=== PATIENT | female | born 1930 | race Two or more races ===

== ENCOUNTER 2017-01-04 13:58 | Emergency (ER) | payer OTHER ==
[~2017-01-04] VITALS: Ht 152.4 cm; Wt 41.4 kg
[2017-01-04 16:15] LABS: BASOPHIL % 0.3 % (0-2); PLATELET COUNT 346 x10^3mcL (130-400)
[2017-01-04 16:18] LABS: RED CELL DISTRIBUTION WIDTH 15.9 % (11.5-14.5)
[2017-01-04 16:19] LABS: CALCIUM 9.1 mg/dL (8.5-10.1); CARBON DIOXIDE 22.4 mmol/L (21-32); CHLORIDE SERUM 105 mmol/L (98-107); CREATININE SERUM 0.6 mg/dL (0.6-1.0); GLUCOSE SERUM 87 mg/dL (74-106); POTASSIUM SERUM 3.4 mmol/L (3.5-5.1); SODIUM SERUM 140 mmol/L (136-145)
[2017-01-04 16:23] LABS: ALBUMIN 3.7 g/dL (3.4-5.0); ALKALINE PHOSPHATASE 78 U/L (46-116); ALT/SGPT 23 U/L (14-59); AMYLASE 88 U/L (25-115); AST/SGOT 22 U/L (15-37); BILIRUBIN TOTAL 0.29 mg/dL (0.20-1.00); LIPASE 75 IU/L (73-393); TOTAL PROTEIN, SERUM 7.2 g/dL (6.4-8.2)
[2017-01-04 19:12] VITALS: BP 149/78
== END 2017-01-04 19:13 | disposition home or self-care (01) ==
LOC: ED 13:58
PROVIDERS: Emergency Medicine
DX: R10.32 Left lower quadrant pain (principal); R19.7 Diarrhea, unspecified; E86.0 Dehydration; I10 Essential (primary) hypertension
CPT/HCPCS: 83880; 87046; 87046-59; J2405; J7030; J7040

== ENCOUNTER 2017-04-26 16:37 | Inpatient (IN) | payer OTHER ==
[~2017-04-26] VITALS: Ht 152.4 cm; Wt 43.6 kg
[2017-04-26 19:19] LABS: BASOPHIL % 0.4 % (0-2); PLATELET COUNT 276 x10^3mcL (130-400); RED CELL DISTRIBUTION WIDTH 17.1 % (11.5-14.5)
[2017-04-26 19:40] LABS: microscopic required? NO
[2017-04-26 19:42] LABS: CALCIUM 8.5 mg/dL (8.5-10.1); CARBON DIOXIDE 25.7 mmol/L (21-32); CHLORIDE SERUM 102 mmol/L (98-107); CREATININE SERUM 0.6 mg/dL (0.6-1.0); GLUCOSE SERUM 117 mg/dL (74-106); POTASSIUM SERUM 3.4 mmol/L (3.5-5.1); SODIUM SERUM 138 mmol/L (136-145)
[2017-04-26 19:47] LABS: ALBUMIN 3.4 g/dL (3.4-5.0); ALKALINE PHOSPHATASE 66 U/L (46-116); ALT/SGPT 31 U/L (14-59); AMYLASE 63 U/L (25-115); AST/SGOT 27 U/L (15-37); BILIRUBIN TOTAL 0.3 mg/dL (0.20-1.00); LIPASE 132 IU/L (73-393); TOTAL PROTEIN, SERUM 6.6 g/dL (6.4-8.2)
[2017-04-26] MEDS ORDERED: APAP/HYDROCODON1 T15 PO (19:56)
[2017-04-26] MEDS ORDERED: CIPRO500 MG (19:57)
[2017-04-26] MEDS ORDERED: ALPRAZOLAM0.25 MG PO (19:59)
[2017-04-26] MEDS ORDERED: BENTYL10 MG PO (20:00)
[2017-04-26] MEDS ORDERED: MIRTAZAPINE30 M2 PO (20:01)
[2017-04-26] MEDS ORDERED: ADULT LOW DOSE81 MG PO (20:02)
[2017-04-26] MEDS ORDERED: PROTONIX40 MG PO (20:03)
[2017-04-26] MEDS ORDERED: VERAPAMIL HYDR240 MG PO (20:03)
[2017-04-26] MEDS ORDERED: COZAAR50 M1 PO (20:04)
[2017-04-26] MEDS ORDERED: HYDROCHLOROTH12.5 M2 PO (20:05)
[2017-04-26] MEDS ORDERED: LIPI10 PO (20:06)
[2017-04-26] MEDS ORDERED: METHOTREXATE2.5 M2 PO (20:11)
[2017-04-26] MEDS ORDERED: FOL1 PO (20:12)
[2017-04-26] MEDS ORDERED: ZANTAC 150150 MG PO (20:13)
[2017-04-26 20:30] LABS: urine erythrocyte NEGATIVE (NEGATIVE)
[2017-04-26 20:45] LABS: AMPHETAMINE QUAL UR NONE DETECTED (NEG <=1000)
[2017-04-26 21:31] LABS: FREE T4 0.91 ng/dL (0.76-1.46); FREE THYROXINE INDEX 2.6 ug/dL (1.4-4.5); T3 TOTAL 0.91 ng/mL; T4(THYROXINE) 7.6 ug/dL (4.7-13.3)
[2017-04-26 21:45] LABS: MAGNESIUM 1.7 mg/dL (1.8-2.4); PHOSPHOROUS 3.5 mg/dL (2.5-4.9)
[2017-04-26 21:47] VITALS: BP 173/77
[2017-04-27 05:29] VITALS: BP 138/69
[2017-04-27 06:15] LABS: BASOPHIL % 0.8 % (0-2); PLATELET COUNT 237 x10^3mcL (130-400)
[2017-04-27 06:38] LABS: RED CELL DISTRIBUTION WIDTH 16.6 % (11.5-14.5)
[2017-04-27 06:40] LABS: CALCIUM 8.2 mg/dL (8.5-10.1); CARBON DIOXIDE 22.6 mmol/L (21-32); CHLORIDE SERUM 104 mmol/L (98-107); CREATININE SERUM 0.6 mg/dL (0.6-1.0); GLUCOSE SERUM 86 mg/dL (74-106); MAGNESIUM 1.6 mg/dL (1.8-2.4); PHOSPHOROUS 4.1 mg/dL (2.5-4.9); POTASSIUM SERUM 3.1 mmol/L (3.5-5.1); SODIUM SERUM 137 mmol/L (136-145)
[2017-04-27 09:00] VITALS: BP 156/69
[2017-04-27 13:18] VITALS: BP 159/61
[2017-04-27 16:37] VITALS: BP 124/62
[2017-04-27 20:57] VITALS: BP 124/61
[2017-04-28 05:20] VITALS: BP 152/74
[2017-04-28 06:14] LABS: BASOPHIL % 0.5 % (0-2); PLATELET COUNT 246 x10^3mcL (130-400)
[2017-04-28 06:38] LABS: CALCIUM 8.3 mg/dL (8.5-10.1); CARBON DIOXIDE 22.6 mmol/L (21-32); CHLORIDE SERUM 107 mmol/L (98-107); CREATININE SERUM 0.5 mg/dL (0.6-1.0); GLUCOSE SERUM 76 mg/dL (74-106); MAGNESIUM 1.9 mg/dL (1.8-2.4); POTASSIUM SERUM 3.6 mmol/L (3.5-5.1); SODIUM SERUM 139 mmol/L (136-145)
[2017-04-28 10:40] VITALS: BP 130/94
[2017-04-28 12:23] VITALS: BP 157/69
[2017-04-28] MEDS ORDERED: LEVOFLOXACIN750 M1 PO ×2 (17:18→19:32)
[2017-04-28] MEDS ORDERED: FLAGYL500 MG PO ×2 (17:21→19:32)
[2017-04-28] MEDS ORDERED: LAC PO ×2 (17:21→19:32)
[2017-04-28] MEDS ORDERED: COZ50 PO ×2 (17:22→19:32)
[2017-04-28] MEDS ORDERED: COL100 PO ×2 (17:44→19:32)
[2017-04-28] MEDS ORDERED: APAP/HYDROCODON1 T15 PO (17:52)
[2017-04-28 17:53] VITALS: BP 157/69
[2017-04-28 19:18] VITALS: BP 151/67
== END 2017-04-28 19:44 | disposition home health service (06) | DRG 389 ==
LOC: ED 16:37 → DU 18:50
PROVIDERS: Emergency Medicine; Family Medicine; ADMIT Family Medicine
DX: K56.41 Fecal impaction (principal); Z68.1 Body mass index [BMI] 19.9 or less, adult; D68.69 Other thrombophilia; K52.9 Noninfective gastroenteritis and colitis, unspecified; E11.51 Type 2 diabetes mellitus with diabetic peripheral angiopathy without gangrene; E11.65 Type 2 diabetes mellitus with hyperglycemia; E83.42 Hypomagnesemia; E87.6 Hypokalemia; F32.9 Major depressive disorder, single episode, unspecified; I16.0 Hypertensive urgency; F41.8 Other specified anxiety disorders; K21.9 Gastro-esophageal reflux disease without esophagitis; D53.9 Nutritional anemia, unspecified; M17.0 Bilateral primary osteoarthritis of knee; I69.392 Facial weakness following cerebral infarction; M41.86 Other forms of scoliosis, lumbar region
CPT/HCPCS: 82962; 83880; 84439; 97116-GP; 97530-GP; J1885; J1956; J2270; J3475; J3480; J7030; Q0092; Q9967

== ENCOUNTER 2017-04-29 13:27 | Emergency (ER) | payer OTHER ==
[~2017-04-29 13:27] MED LIST: ADULT LOW DOSE81 MG PO; ALPRAZOLAM0.25 MG PO; APAP/HYDROCODON1 T15 PO; BENTYL10 MG PO; CIPRO500 MG; COL100 PO; COZ50 PO; COZAAR50 M1 PO; FLAGYL500 MG PO; FOL1 PO; HYDROCHLOROTH12.5 M2 PO; LAC PO; LEVOFLOXACIN750 M1 PO; LIPI10 PO; METHOTREXATE2.5 M2 PO; MIRTAZAPINE30 M2 PO; PROTONIX40 MG PO; VERAPAMIL HYDR240 MG PO; ZANTAC 150150 MG PO
[2017-04-29 16:08] VITALS: BP 141/76
== END 2017-04-29 16:08 | disposition home or self-care (01) ==
LOC: ED 13:27
DX: R19.7 Diarrhea, unspecified (principal); K59.00 Constipation, unspecified; I10 Essential (primary) hypertension; G81.94 Hemiplegia, unspecified affecting left nondominant side; Z90.49 Acquired absence of other specified parts of digestive tract; Z86.73 Personal history of transient ischemic attack (TIA), and cerebral infarction without residual deficits; Z87.19 Personal history of other diseases of the digestive system
CPT/HCPCS: J0500

== ENCOUNTER 2017-10-19 15:11 | Inpatient (IN) | payer OTHER ==
[~2017-10-19] VITALS: Ht 152.4 cm; Wt 38.3 kg
[2017-10-19 16:12] LABS: BASOPHIL % 0.5 % (0-2); PLATELET COUNT 224 x10^3mcL (130-400)
[2017-10-19 16:20] LABS: CALCIUM 8.7 mg/dL (8.5-10.1); CARBON DIOXIDE 26.6 mmol/L (21-32); CHLORIDE SERUM 102 mmol/L (98-107); CREATININE SERUM 0.4 mg/dL (0.6-1.0); GLUCOSE SERUM 94 mg/dL (74-106); POTASSIUM SERUM 3.7 mmol/L (3.5-5.1); SODIUM SERUM 133 mmol/L (136-145)
[2017-10-19 16:25] LABS: ALBUMIN 3.6 g/dL (3.4-5.0); ALKALINE PHOSPHATASE 60 U/L (46-116); ALT/SGPT 30 U/L (14-59); AST/SGOT 18 U/L (15-37); BILIRUBIN TOTAL 0.3 mg/dL (0.20-1.00); LIPASE 118 IU/L (73-393); TOTAL PROTEIN, SERUM 6.2 g/dL (6.4-8.2)
[2017-10-19 17:04] LABS: microscopic required? NO
[2017-10-19 17:13] LABS: urine erythrocyte NEGATIVE (NEGATIVE)
[2017-10-19 19:57] LABS: MAGNESIUM 1.7 mg/dL (1.8-2.4); PHOSPHOROUS 4.1 mg/dL (2.5-4.9)
[2017-10-19 19:58] LABS: CHOLESTEROL/HDL RATIO 1.6
[2017-10-19 20:05] LABS: T3 TOTAL 0.86 ng/mL
[2017-10-19 20:15] VITALS: BP 162/65
[2017-10-19 20:38] LABS: FREE T4 0.96 ng/dL (0.76-1.46); T4(THYROXINE) 6.4 ug/dL (4.7-13.3)
[2017-10-20] VITALS (7 sets, daily range): BP systolic 100–172; BP diastolic 60–73
[2017-10-20 07:07] LABS: BASOPHIL % 0.3 % (0-2); PLATELET COUNT 232 x10^3mcL (130-400)
[2017-10-20 07:23] LABS: RED CELL DISTRIBUTION WIDTH 18.8 % (11.5-14.5)
[2017-10-20 07:30] LABS: CALCIUM 8.5 mg/dL (8.5-10.1); CARBON DIOXIDE 20.1 mmol/L (21-32); CHLORIDE SERUM 102 mmol/L (98-107); CREATININE SERUM 0.4 mg/dL (0.6-1.0); GLUCOSE SERUM 201 mg/dL (74-106); POTASSIUM SERUM 3.3 mmol/L (3.5-5.1); SODIUM SERUM 137 mmol/L (136-145)
[2017-10-21 05:12] VITALS: BP 130/67
[2017-10-21 07:07] LABS: CALCIUM 8.3 mg/dL (8.5-10.1); CARBON DIOXIDE 21.2 mmol/L (21-32); CHLORIDE SERUM 105 mmol/L (98-107); CREATININE SERUM 0.4 mg/dL (0.6-1.0); GLUCOSE SERUM 161 mg/dL (74-106); MAGNESIUM 1.4 mg/dL (1.8-2.4); SODIUM SERUM 137 mmol/L (136-145)
[2017-10-21 07:22] LABS: POTASSIUM SERUM 2.6 mmol/L (3.5-5.1)
[2017-10-21 09:04] LABS: PLATELET COUNT 208 x10^3mcL (130-400)
[2017-10-21 09:06] LABS: BASOPHIL % 0 % (0-2); RED CELL DISTRIBUTION WIDTH 19.4 % (11.5-14.5)
[2017-10-21 13:10] VITALS: BP 174/69
[2017-10-21 14:17] VITALS: BP 161/63
[2017-10-21 16:49] VITALS: BP 150/61
[2017-10-21 21:46] VITALS: BP 162/69
[2017-10-22 05:21] LABS: BASOPHIL % 0.2 % (0-2); PLATELET COUNT 172 x10^3mcL (130-400)
[2017-10-22 05:24] LABS: CARBON DIOXIDE 23.2 mmol/L (21-32); CHLORIDE SERUM 105 mmol/L (98-107); CREATININE SERUM 0.4 mg/dL (0.6-1.0); GLUCOSE SERUM 106 mg/dL (74-106); RED CELL DISTRIBUTION WIDTH 18.9 % (11.5-14.5); SODIUM SERUM 139 mmol/L (136-145)
[2017-10-22 05:31] VITALS: BP 157/67
[2017-10-22 05:31] LABS: POTASSIUM SERUM 2.6 mmol/L (3.5-5.1)
[2017-10-22 10:10] VITALS: BP 155/65
[2017-10-22 14:02] VITALS: BP 167/76
[2017-10-22 16:51] VITALS: BP 130/58
[2017-10-22 21:52] VITALS: BP 137/65
[2017-10-23 05:14] VITALS: BP 136/57
[2017-10-23 07:53] LABS: CALCIUM 8.8 mg/dL (8.5-10.1); CARBON DIOXIDE 15.6 mmol/L (21-32); CHLORIDE SERUM 103 mmol/L (98-107); CREATININE SERUM 0.5 mg/dL (0.6-1.0); GLUCOSE SERUM 64 mg/dL (74-106); MAGNESIUM 1.7 mg/dL (1.8-2.4); PHOSPHOROUS 3.1 mg/dL (2.5-4.9); POTASSIUM SERUM 3.5 mmol/L (3.5-5.1); SODIUM SERUM 137 mmol/L (136-145)
[2017-10-23 08:02] LABS: BASOPHIL % 0 % (0-2); PLATELET COUNT 213 x10^3mcL (130-400); RED CELL DISTRIBUTION WIDTH 18.2 % (11.5-14.5)
[2017-10-23 08:50] VITALS: Ht 152.4 cm; Wt 38.3 kg
[2017-10-23 09:27] VITALS: BP 149/71
[2017-10-23 18:29] VITALS: BP 120/48
[2017-10-23 18:30] VITALS: BP 120/48
[2017-10-23 20:55] VITALS: BP 138/59
[2017-10-24 05:45] VITALS: BP 153/63
[2017-10-24 07:34] LABS: PLATELET COUNT 227 x10^3mcL (130-400); RED CELL DISTRIBUTION WIDTH 18.2 % (11.5-14.5)
[2017-10-24 07:42] LABS: CALCIUM 8.5 mg/dL (8.5-10.1); CARBON DIOXIDE 18.3 mmol/L (21-32); CHLORIDE SERUM 109 mmol/L (98-107); CREATININE SERUM 0.4 mg/dL (0.6-1.0); GLUCOSE SERUM 132 mg/dL (74-106); MAGNESIUM 1.7 mg/dL (1.8-2.4); PHOSPHOROUS 2.7 mg/dL (2.5-4.9); SODIUM SERUM 143 mmol/L (136-145)
[2017-10-24 07:58] LABS: POTASSIUM SERUM 2.3 mmol/L (3.5-5.1)
[2017-10-24 09:35] VITALS: BP 142/58
[2017-10-24 10:37] LABS: BAND NEUTROPHIL 19 % (0-10); BASOPHIL 0 % (0-2); METAMYELOCTE 1 % (0-2); MONOCYTE 3 % (0-7); SEGMENTED NEUTROPHILS 69 % (37-75)
[2017-10-24 10:38] LABS: rbc morphology (normal/abnorm) ABNORMAL (NORMAL)
[2017-10-24 13:57] VITALS: BP 102/48
[2017-10-24 17:04] VITALS: BP 103/57
[2017-10-24 20:51] VITALS: BP 120/63
[2017-10-25 05:31] VITALS: BP 146/69
[2017-10-25 06:17] LABS: BASOPHIL % 0.1 % (0-2); PLATELET COUNT 246 x10^3mcL (130-400)
[2017-10-25 06:19] LABS: RED CELL DISTRIBUTION WIDTH 18.3 % (11.5-14.5)
[2017-10-25 06:39] LABS: CALCIUM 8.3 mg/dL (8.5-10.1); CARBON DIOXIDE 19.8 mmol/L (21-32); CHLORIDE SERUM 108 mmol/L (98-107); CREATININE SERUM 0.4 mg/dL (0.6-1.0); GLUCOSE SERUM 148 mg/dL (74-106); MAGNESIUM 1.6 mg/dL (1.8-2.4); PHOSPHOROUS 2.3 mg/dL (2.5-4.9); SODIUM SERUM 142 mmol/L (136-145)
[2017-10-25 07:21] LABS: POTASSIUM SERUM 2.3 mmol/L (3.5-5.1)
[2017-10-25 09:26] VITALS: BP 147/79
[2017-10-25 13:15] VITALS: BP 160/81
[2017-10-25 13:25] VITALS: BP 123/66
[2017-10-25 17:05] LABS: CALCIUM 7.9 mg/dL (8.5-10.1); CARBON DIOXIDE 20.6 mmol/L (21-32); CHLORIDE SERUM 107 mmol/L (98-107); CREATININE SERUM 0.5 mg/dL (0.6-1.0); GLUCOSE SERUM 135 mg/dL (74-106); POTASSIUM SERUM 3.1 mmol/L (3.5-5.1); SODIUM SERUM 144 mmol/L (136-145)
[2017-10-25 17:42] VITALS: BP 106/55
[2017-10-25 20:52] VITALS: BP 104/50
[2017-10-26 05:18] VITALS: BP 138/67
[2017-10-26 06:28] LABS: BASOPHIL % 0.3 % (0-2); PLATELET COUNT 243 x10^3mcL (130-400)
[2017-10-26 06:34] LABS: CARBON DIOXIDE 21.1 mmol/L (21-32); CHLORIDE SERUM 109 mmol/L (98-107); CREATININE SERUM 0.4 mg/dL (0.6-1.0); GLUCOSE SERUM 102 mg/dL (74-106); MAGNESIUM 1.9 mg/dL (1.8-2.4); PHOSPHOROUS 3.6 mg/dL (2.5-4.9); POTASSIUM SERUM 3.1 mmol/L (3.5-5.1); SODIUM SERUM 141 mmol/L (136-145)
[2017-10-26 06:54] LABS: RED CELL DISTRIBUTION WIDTH 18.4 % (11.5-14.5)
[2017-10-26 08:08] VITALS: BP 117/80
[2017-10-26 12:49] VITALS: BP 118/61
[2017-10-26 16:50] VITALS: BP 129/64
[2017-10-26 21:09] VITALS: BP 120/61
[2017-10-27 05:42] VITALS: BP 149/71
[2017-10-27 06:17] LABS: BASOPHIL % 0.4 % (0-2); PLATELET COUNT 265 x10^3mcL (130-400)
[2017-10-27 06:29] LABS: CALCIUM 8.3 mg/dL (8.5-10.1); CARBON DIOXIDE 21.1 mmol/L (21-32); CHLORIDE SERUM 110 mmol/L (98-107); CREATININE SERUM 0.4 mg/dL (0.6-1.0); GLUCOSE SERUM 97 mg/dL (74-106); POTASSIUM SERUM 4.3 mmol/L (3.5-5.1); SODIUM SERUM 142 mmol/L (136-145)
[2017-10-27 06:45] LABS: RED CELL DISTRIBUTION WIDTH 18.3 % (11.5-14.5)
[2017-10-27 08:40] VITALS: BP 161/72
[2017-10-27] MEDS ORDERED: LEVAQUIN750 MG PO (16:49)
[2017-10-27] MEDS ORDERED: BD LACTINEX1.4 MG PO (16:50)
[2017-10-27] MEDS ORDERED: IRON325 M4 PO (17:04)
[2017-10-27 17:09] VITALS: BP 110/57
== END 2017-10-27 19:22 | DRG 347 ==
LOC: ED 15:11 → DU 19:08 → MU 10-27 07:52
PROVIDERS: Emergency Medicine; Family Medicine; Family Medicine Sports Medicine; Student in an Organized Health Care Education/Training Program; Surgery
PROC: 0DBA4ZZ Excision of Jejunum, Percutaneous Endoscopic Approach (ICD-10-PCS; principal; 2017-10-19 22:00)
DX: K56.1 Intussusception (principal); N17.0 Acute kidney failure with tubular necrosis; E87.1 Hypo-osmolality and hyponatremia; Z68.1 Body mass index [BMI] 19.9 or less, adult; E87.6 Hypokalemia; E83.42 Hypomagnesemia; K21.9 Gastro-esophageal reflux disease without esophagitis; I10 Essential (primary) hypertension; D64.9 Anemia, unspecified; M06.9 Rheumatoid arthritis, unspecified; F41.1 Generalized anxiety disorder; Z90.49 Acquired absence of other specified parts of digestive tract; Z90.710 Acquired absence of both cervix and uterus; Z98.51 Tubal ligation status; Z79.82 Long term (current) use of aspirin; Z86.73 Personal history of transient ischemic attack (TIA), and cerebral infarction without residual deficits
CPT/HCPCS: 83880; 84439; 97110-GP; 97116-GP; 97530-GP; J0330; J0690; J1170; J1885; J1956; J2060; J2270; J2405; J2704; J2710; J3010; J3475; J3480; J3490; J7030; J7120; Q9967

== ENCOUNTER 2017-11-03 13:01 | Inpatient (IN) | payer OTHER ==
[~2017-11-03] VITALS: Ht 152.4 cm; Wt 35.0 kg
[~2017-11-03 13:01] MED LIST changes: +BD LACTINEX1.4 MG PO; +IRON325 M4 PO; +LEVAQUIN750 MG PO
[2017-11-03 15:00] LABS: UA SPECIFIC GRAVITY 1.025 (1.005-1.035); microscopic required? YES; urine erythrocyte TRACE (NEGATIVE)
[2017-11-03 15:08] LABS: BASOPHIL % 0.2 % (0-2)
[2017-11-03 15:18] LABS: CALCIUM 8.8 mg/dL (8.5-10.1); CARBON DIOXIDE 26.1 mmol/L (21-32); CHLORIDE SERUM 96 mmol/L (98-107); CREATININE SERUM 0.5 mg/dL (0.6-1.0); GLUCOSE SERUM 120 mg/dL (74-106); POTASSIUM SERUM 3.8 mmol/L (3.5-5.1); SODIUM SERUM 133 mmol/L (136-145)
[2017-11-03 15:38] LABS: ALKALINE PHOSPHATASE 75 U/L (46-116); ALT/SGPT 31 U/L (14-59); AST/SGOT 35 U/L (15-37); BILIRUBIN TOTAL 0.37 mg/dL (0.20-1.00); LIPASE 196 IU/L (73-393); TOTAL PROTEIN, SERUM 6.7 g/dL (6.4-8.2)
[2017-11-03 15:39] LABS: ALBUMIN 2.9 g/dL (3.4-5.0); AMYLASE 119 U/L (25-115)
[2017-11-03 15:48] LABS: RED CELL DISTRIBUTION WIDTH 19.8 % (11.5-14.5)
[2017-11-03 15:53] LABS: PLATELET COUNT 523 x10^3mcL (130-400)
[2017-11-03 18:10] LABS: PHOSPHOROUS 4.3 mg/dL (2.5-4.9)
[2017-11-03 18:11] LABS: CHOLESTEROL/HDL RATIO 1.7
[2017-11-03 18:20] LABS: T3 TOTAL 0.67 ng/mL
[2017-11-03 18:26] LABS: AMPHETAMINE QUAL UR NONE DETECTED (NEG <=1000)
[2017-11-03 18:50] VITALS: BP 140/80
[2017-11-03 18:56] LABS: FREE T4 0.94 ng/dL (0.76-1.46)
[2017-11-03 18:57] VITALS: Ht 152.4 cm; Wt 35.0 kg
[2017-11-03 19:05] LABS: FREE THYROXINE INDEX 1.4 ug/dL (1.4-4.5); T4(THYROXINE) 2.9 ug/dL (4.7-13.3)
[2017-11-03 22:19] VITALS: BP 129/60
[2017-11-04 06:09] VITALS: BP 154/82
[2017-11-04 06:19] LABS: BASOPHIL % 0 % (0-2); RED CELL DISTRIBUTION WIDTH 19.7 % (11.5-14.5)
[2017-11-04 06:20] LABS: PLATELET COUNT 532 x10^3mcL (130-400)
[2017-11-04 06:48] LABS: CALCIUM 8.8 mg/dL (8.5-10.1); CARBON DIOXIDE 21.6 mmol/L (21-32); CHLORIDE SERUM 100 mmol/L (98-107); CREATININE SERUM 0.6 mg/dL (0.6-1.0); GLUCOSE SERUM 121 mg/dL (74-106); POTASSIUM SERUM 3.3 mmol/L (3.5-5.1); SODIUM SERUM 138 mmol/L (136-145)
[2017-11-04 09:12] VITALS: BP 147/77
[2017-11-04 13:39] VITALS: BP 107/63
[2017-11-04 17:00] VITALS: BP 114/60
[2017-11-04 20:51] VITALS: BP 134/62
[2017-11-05 05:29] VITALS: BP 139/62
[2017-11-05 06:25] LABS: BASOPHIL % 0.3 % (0-2); PLATELET COUNT 400 x10^3mcL (130-400)
[2017-11-05 06:44] LABS: CALCIUM 8.1 mg/dL (8.5-10.1); CARBON DIOXIDE 20.2 mmol/L (21-32); CHLORIDE SERUM 107 mmol/L (98-107); CREATININE SERUM 0.5 mg/dL (0.6-1.0); GLUCOSE SERUM 81 mg/dL (74-106); SODIUM SERUM 141 mmol/L (136-145)
[2017-11-05 06:48] LABS: RED CELL DISTRIBUTION WIDTH 19.9 % (11.5-14.5)
[2017-11-05 06:49] LABS: POTASSIUM SERUM 2.6 mmol/L (3.5-5.1)
[2017-11-05 08:55] VITALS: BP 135/73
[2017-11-05 12:37] VITALS: BP 141/71
[2017-11-05 17:58] VITALS: BP 104/56
[2017-11-05 20:54] VITALS: BP 123/63
[2017-11-06 05:31] VITALS: BP 147/59
[2017-11-06 08:53] LABS: BASOPHIL % 0.2 % (0-2); PLATELET COUNT 362 x10^3mcL (130-400)
[2017-11-06 08:54] LABS: RED CELL DISTRIBUTION WIDTH 19.5 % (11.5-14.5)
[2017-11-06 08:58] VITALS: BP 152/71
[2017-11-06 09:54] LABS: CALCIUM 7.8 mg/dL (8.5-10.1); CARBON DIOXIDE 17.3 mmol/L (21-32); CHLORIDE SERUM 112 mmol/L (98-107); CREATININE SERUM 0.4 mg/dL (0.6-1.0); GLUCOSE SERUM 78 mg/dL (74-106); PHOSPHOROUS 3.1 mg/dL (2.5-4.9); SODIUM SERUM 146 mmol/L (136-145)
[2017-11-06 09:59] LABS: POTASSIUM SERUM 2.2 mmol/L (3.5-5.1)
[2017-11-06 17:31] VITALS: BP 122/62
[2017-11-06 20:42] VITALS: BP 144/63
[2017-11-07 00:56] LABS: CALCIUM 7.6 mg/dL (8.5-10.1); CARBON DIOXIDE 18.1 mmol/L (21-32); CHLORIDE SERUM 118 mmol/L (98-107); CREATININE SERUM 0.4 mg/dL (0.6-1.0); GLUCOSE SERUM 73 mg/dL (74-106); POTASSIUM SERUM 3.3 mmol/L (3.5-5.1); SODIUM SERUM 150 mmol/L (136-145)
[2017-11-07 07:00] LABS: BASOPHIL % 0.5 % (0-2); PLATELET COUNT 317 x10^3mcL (130-400)
[2017-11-07 07:22] LABS: CALCIUM 7.9 mg/dL (8.5-10.1); CARBON DIOXIDE 17.5 mmol/L (21-32); CHLORIDE SERUM 113 mmol/L (98-107); CREATININE SERUM 0.4 mg/dL (0.6-1.0); GLUCOSE SERUM 79 mg/dL (74-106); MAGNESIUM 1.7 mg/dL (1.8-2.4); PHOSPHOROUS 2.1 mg/dL (2.5-4.9); SODIUM SERUM 145 mmol/L (136-145)
[2017-11-07 07:27] LABS: RED CELL DISTRIBUTION WIDTH 19.2 % (11.5-14.5)
[2017-11-07 07:36] LABS: POTASSIUM SERUM 2.6 mmol/L (3.5-5.1)
[2017-11-07 08:11] VITALS: BP 151/76
[2017-11-07 17:40] VITALS: BP 151/80
[2017-11-07 17:43] LABS: CALCIUM 7.8 mg/dL (8.5-10.1); CARBON DIOXIDE 19.5 mmol/L (21-32); CHLORIDE SERUM 111 mmol/L (98-107); CREATININE SERUM 0.4 mg/dL (0.6-1.0); GLUCOSE SERUM 69 mg/dL (74-106); SODIUM SERUM 142 mmol/L (136-145)
[2017-11-07 17:45] LABS: POTASSIUM SERUM 2.9 mmol/L (3.5-5.1)
[2017-11-07 21:28] VITALS: BP 143/69
[2017-11-08 02:06] LABS: CALCIUM 7.6 mg/dL (8.5-10.1); CARBON DIOXIDE 22.4 mmol/L (21-32); CHLORIDE SERUM 112 mmol/L (98-107); CREATININE SERUM 0.3 mg/dL (0.6-1.0); GLUCOSE SERUM 67 mg/dL (74-106); POTASSIUM SERUM 3.4 mmol/L (3.5-5.1); SODIUM SERUM 145 mmol/L (136-145)
[2017-11-08 05:25] VITALS: BP 138/67
[2017-11-08 07:50] LABS: BASOPHIL % 0.4 % (0-2); PLATELET COUNT 312 x10^3mcL (130-400)
[2017-11-08 07:51] LABS: RED CELL DISTRIBUTION WIDTH 19.1 % (11.5-14.5)
[2017-11-08 08:28] LABS: CALCIUM 7.4 mg/dL (8.5-10.1); CARBON DIOXIDE 18.1 mmol/L (21-32); CHLORIDE SERUM 110 mmol/L (98-107); CREATININE SERUM 0.4 mg/dL (0.6-1.0); MAGNESIUM 2.1 mg/dL (1.8-2.4); PHOSPHOROUS 2.4 mg/dL (2.5-4.9); POTASSIUM SERUM 3.4 mmol/L (3.5-5.1); SODIUM SERUM 141 mmol/L (136-145)
[2017-11-08 08:35] LABS: GLUCOSE SERUM 59 mg/dL (74-106)
[2017-11-08 09:48] VITALS: BP 152/74
[2017-11-08 11:33] LABS: IRON 28 ug/dL (50-170); TOTAL IRON BINDING CAPACITY 180 ug/dL (250-450)
[2017-11-08 17:00] VITALS: BP 134/74
[2017-11-08 22:25] VITALS: BP 111/66
[2017-11-09 04:43] VITALS: BP 127/67
[2017-11-09 08:21] LABS: CALCIUM 7.5 mg/dL (8.5-10.1); CARBON DIOXIDE 19.5 mmol/L (21-32); CHLORIDE SERUM 110 mmol/L (98-107); CREATININE SERUM 0.4 mg/dL (0.6-1.0); GLUCOSE SERUM 99 mg/dL (74-106); MAGNESIUM 1.8 mg/dL (1.8-2.4); PHOSPHOROUS 3.4 mg/dL (2.5-4.9); SODIUM SERUM 138 mmol/L (136-145)
[2017-11-09 08:25] LABS: POTASSIUM SERUM 2.9 mmol/L (3.5-5.1)
[2017-11-09 08:53] VITALS: BP 131/71
[2017-11-09 09:48] LABS: BASOPHIL % 0.2 % (0-2); PLATELET COUNT 279 x10^3mcL (130-400); RED CELL DISTRIBUTION WIDTH 19.1 % (11.5-14.5)
[2017-11-09] MEDS ORDERED: TRAZODONE100 MG PO (15:06)
== END 2017-11-09 17:11 | DRG 388 ==
LOC: ED 13:01 → DU 16:42 → MU 16:42 → DU 18:20 → MU 11-05 08:32
PROVIDERS: Emergency Medicine; Family Medicine
DX: K56.609 Unspecified intestinal obstruction, unspecified as to partial versus complete obstruction (principal); N17.0 Acute kidney failure with tubular necrosis; E87.1 Hypo-osmolality and hyponatremia; E44.0 Moderate protein-calorie malnutrition; Z68.1 Body mass index [BMI] 19.9 or less, adult; E87.6 Hypokalemia; I10 Essential (primary) hypertension; M62.59 Muscle wasting and atrophy, not elsewhere classified, multiple sites; M06.9 Rheumatoid arthritis, unspecified; R73.03 Prediabetes; D64.9 Anemia, unspecified; D47.3 Essential (hemorrhagic) thrombocythemia; F41.1 Generalized anxiety disorder; F32.9 Major depressive disorder, single episode, unspecified; Z86.73 Personal history of transient ischemic attack (TIA), and cerebral infarction without residual deficits; Z87.11 Personal history of peptic ulcer disease
CPT/HCPCS: 82962; 83880; 84439; 97110-GP; 97116-GP; 97530-GP; C9113; J1885; J2060; J2405; J2543; J2550; J3010; J3475; J3480; J3490; J7030; J7050; J8597; J8610; Q0092; Q9967

== ENCOUNTER 2017-12-05 11:24 | Emergency (ER) | payer OTHER ==
[~2017-12-05] VITALS: Ht 149.9 cm; Wt 32.6 kg
[~2017-12-05 11:24] MED LIST changes: +TRAZODONE100 MG PO
[2017-12-05 11:26] VITALS: Ht 149.9 cm; Wt 32.6 kg
[2017-12-05 12:46] LABS: microscopic required? NO
[2017-12-05 12:55] LABS: BASOPHIL % 0.2 % (0-2)
[2017-12-05 12:58] LABS: PLATELET COUNT 421 x10^3mcL (130-400); RED CELL DISTRIBUTION WIDTH 18.5 % (11.5-14.5)
[2017-12-05 13:01] LABS: urine erythrocyte NEGATIVE (NEGATIVE)
[2017-12-05 13:04] LABS: ALKALINE PHOSPHATASE 130 U/L (46-116); ALT/SGPT 19 U/L (14-59); AMYLASE 44 U/L (25-115); AST/SGOT 29 U/L (15-37); BILIRUBIN TOTAL 0.2 mg/dL (0.20-1.00); CALCIUM 7.7 mg/dL (8.5-10.1); CARBON DIOXIDE 24.9 mmol/L (21-32); CHLORIDE SERUM 108 mmol/L (98-107); CREATININE SERUM 0.6 mg/dL (0.6-1.0); GLUCOSE SERUM 102 mg/dL (74-106); LIPASE 142 IU/L (73-393); SODIUM SERUM 138 mmol/L (136-145)
[2017-12-05 13:09] LABS: POTASSIUM SERUM 2.9 mmol/L (3.5-5.1); TOTAL PROTEIN, SERUM 5.3 g/dL (6.4-8.2)
[2017-12-05 20:56] VITALS: BP 135/67
== END 2017-12-05 20:56 | disposition home or self-care (01) ==
LOC: ED 11:24
PROVIDERS: Specialist
DX: K56.41 Fecal impaction (principal); I10 Essential (primary) hypertension; Z86.73 Personal history of transient ischemic attack (TIA), and cerebral infarction without residual deficits; Z90.49 Acquired absence of other specified parts of digestive tract; Z90.710 Acquired absence of both cervix and uterus
CPT/HCPCS: J1885; J3480; J7030; J7040